=== PATIENT | female | born 1945 | race Caucasian/White ===

== ENCOUNTER → 2018-09-12 09:10 | Outpatient (CLI) | payer MEDICARE, OTHER ==
[2018-09-12 09:47] LABS: BASOPHILS 0.4 % (0-2); EOSINOPHILS 7.1 % (0-7); HEMATOCRIT 31.5 % (36.0-48.0); HEMOGLOBIN 9.7 g/dL (12-16); IMMATURE GRANULOCYTES 0.3 % (0-5); LYMPHOCYTES 25.2 % (15-50); MCH 24.1 pg (26.0-34.0); MCHC 30.8 g/dL (31.0-37.0); MCV 78.2 fL (80.0-100.0); MEAN PLATELET VOLUME 9.6 fL (7.4-10.4); MONOCYTES 13.4 % (2-11); NEUTROPHILS 53.6 % (40-80); RBC 4.03 10x6/uL (4.00-5.40); RDW 16.9 % (11.5-14.5)
[2018-09-12 09:49] LABS: PLATELET COUNT 298 10x3/uL (130-400)
== END | disposition home or self-care (01) ==
LOC: D.CT 09:10
PROVIDERS: Internal Medicine Gastroenterology
DX: K57.92 Diverticulitis of intestine, part unspecified, without perforation or abscess without bleeding (principal); D64.9 Anemia, unspecified; R10.31 Right lower quadrant pain; R10.32 Left lower quadrant pain

== ENCOUNTER → 2021-02-24 11:27 | Outpatient (CLI) | payer MEDICARE, OTHER ==
[2021-02-24 12:50] LABS: BASOPHILS 0.5 % (0-2); EOSINOPHILS 5.8 % (0-7); HEMATOCRIT 40.1 % (36.0-48.0); HEMOGLOBIN 13.1 g/dL (12-16); IMMATURE GRANULOCYTES 0.3 % (0-5); LYMPHOCYTE ABS# 3.45 10x3/uL (1.18-3.74); LYMPHOCYTES 39.2 % (15-50); MCHC 32.7 g/dL (31.0-37.0); MCV 91.8 fL (80.0-100.0); MEAN PLATELET VOLUME 10.8 fL (7.4-10.4); MONOCYTES 9.9 % (2-11); NEUTROPHIL ABS# 3.89 10x3/uL (1.56-6.13); NEUTROPHILS 44.3 % (40-80); PLATELET COUNT 339 10x3/uL (130-400); RBC 4.37 10x6/uL (4.00-5.40); RDW 13.7 % (11.5-14.5); WBC 8.8 10x3/uL (4.8-10.8)
== END | disposition home or self-care (01) ==
LOC: D.LAB 11:27
PROVIDERS: ATTEND Internal Medicine Gastroenterology
DX: K31.89 Other diseases of stomach and duodenum (principal); K22.719 Barrett's esophagus with dysplasia, unspecified